=== PATIENT | female | born 1950 | race Caucasian/White ===

== ENCOUNTER 2016-05-17 16:39 | Emergency (ER) | payer MEDICARE, MEDICAID ==
[2016-05-17] MEDS ORDERED: guaiFENesin/CODEINE 5 ML UDC PO STA ×2 (18:04→18:46)
[2016-05-17] MEDS ORDERED: ALBUTEROL NEB 2.5 MG/3 ML INH STA (18:04)
[2016-05-17] MEDS ORDERED: guaiFENesin/CODEINE 5 ML UDC ONE ×2 (18:08→18:51)
[2016-05-17] MEDS ORDERED: ALBUTEROL NEB 2.5 MG/3 ML INH ONE (18:11)
[2016-05-17] MEDS ORDERED: ALBUTEROL 8 GM INHALER INH STA (18:34)
[2016-05-17] MEDS ORDERED: ALBUTEROL 8 GM INHALER INH ONE (18:35)
== END 2016-05-17 18:57 | disposition home or self-care (01) ==
DX: J06.9 Acute upper respiratory infection, unspecified (principal); B97.89 Other viral agents as the cause of diseases classified elsewhere
CPT/HCPCS: 71020; 94640; 94664; 99282; 99283; A9270; J7613

== ENCOUNTER 2016-06-18 15:41 | Outpatient (CLI) | payer MEDICARE, MEDICAID | END 2016-06-18 15:42 | disposition home or self-care (01) | DX: R05 Cough (principal) ==

== ENCOUNTER 2016-06-26 06:23 | Outpatient (CLI) | payer MEDICARE, MEDICAID ==
[2016-06-26] MEDS ORDERED: GADOBUTROL 7.5 MMOL/7.5 ML VIAL IVP ONE (09:02)
== END 2016-06-26 06:24 | disposition home or self-care (01) ==
DX: Z01.812 Encounter for preprocedural laboratory examination (principal); G50.0 Trigeminal neuralgia; R51 Headache
CPT/HCPCS: 36415; 70553; 82565; A9585

== ENCOUNTER 2016-10-19 08:00 | Outpatient (CLI) | payer MEDICARE, MEDICAID ==
[2016-10-19 12:03] LABS: ALBUMIN/GLOBULIN RATIO 1.5 (1.0-2.2); BILIRUBIN,TOTAL 0.4 mg/dL (0.2-1.0); BUN - BLOOD UREA NITROGEN 18 mg/dL (6-20); CARBON DIOXIDE - CO2 27 mmol/L (21-32); CHLORIDE 106 mmol/L (101-111); CHOLESTEROL 238 mg/dL; CREATININE 0.8 mg/dL (0.4-1.0); GFR - MDRD 71 (>89); GLUCOSE 93 mg/dL (70-100); HDL CHOLESTEROL 59 mg/dL; LDL/HDL RATIO 2.5 (<4.4); SODIUM 139 mmol/L (135-145); TOTAL PROTEIN 6.8 g/dL (6.7-8.2); TRIGLYCERIDES 152 mg/dL; VLDL CHOLESTEROL 30 mg/dL
== END 2016-10-19 23:59 ==
LOC: LAB.S 08:00
PROVIDERS: ATTEND Nurse Practitioner Family
DX: R43.9 Unspecified disturbances of smell and taste (principal); E78.5 Hyperlipidemia, unspecified; I10 Essential (primary) hypertension
CPT/HCPCS: 36415; 80053; 80061

== ENCOUNTER 2017-05-10 10:45 | Outpatient (CLI) | payer MEDICARE, MEDICAID | END 2017-05-10 10:46 | disposition home or self-care (01) | LOC: LAB.R 10:45 | PROVIDERS: ATTEND Nurse Practitioner Family | DX: B02.9 Zoster without complications (principal) | CPT/HCPCS: 81599; 87290 ==

== ENCOUNTER 2017-07-19 08:00 | Outpatient (CLI) | payer MEDICARE, MEDICAID ==
[2017-07-19 18:12] LABS: CREATININE 0.9 mg/dL (0.4-1.0)
== END 2017-07-19 08:01 | disposition home or self-care (01) ==
LOC: LAB.S 08:00
PROVIDERS: ATTEND Nurse Practitioner Family
DX: E87.1 Hypo-osmolality and hyponatremia (principal)
CPT/HCPCS: 36415; 80048

== ENCOUNTER 2017-07-19 14:45 | Outpatient (CLI) | payer MEDICARE, MEDICAID ==
--- NOTE | 2017-07-20 09:15 | XRAY Report ---
RIGHT HIP AND PELVIS: 07/19/2017 CLINICAL INDICATION: Pain. FINDINGS: Frontal view of the hips and pelvis and frogleg lateral view of the right hip demonstrate no evidence of fracture or dislocation. The joint spaces are preserved. No radiopaque foreign bodies are seen in the soft tissues. IMPRESSION: NORMAL RIGHT HIP. TD: 07/20/2017 09:14
== END 2017-07-19 14:46 | disposition home or self-care (01) ==
LOC: DI.S 14:45
PROVIDERS: ATTEND Nurse Practitioner Family
DX: M25.551 Pain in right hip (principal); E87.1 Hypo-osmolality and hyponatremia
CPT/HCPCS: 36415; 80048

== ENCOUNTER 2018-02-09 15:08 | Outpatient (CLI) | payer MEDICARE, MEDICAID ==
[2018-02-09 17:59] LABS: ALBUMIN 4.1 g/dL (3.2-5.5); ALBUMIN/GLOBULIN RATIO 1.5 (1.0-2.2); BILIRUBIN,TOTAL 0.5 mg/dL (0.2-1.0); CALCIUM 8.9 mg/dL (8.5-10.3); CREATININE 0.8 mg/dL (0.4-1.0); TOTAL PROTEIN 6.8 g/dL (6.7-8.2); URIC ACID 4.2 mg/dL (2.6-7.2)
== END 2018-02-09 15:09 | disposition home or self-care (01) ==
LOC: LAB.F 15:08
PROVIDERS: ATTEND Nurse Practitioner Family
DX: M79.672 Pain in left foot (principal)
CPT/HCPCS: 36415; 80053; 84550

== ENCOUNTER 2018-03-07 16:20 | Outpatient (CLI) | payer MEDICARE, MEDICAID | END 2018-03-07 16:21 | disposition home or self-care (01) | LOC: RT.S 16:20 | PROVIDERS: ATTEND Nurse Practitioner Family | DX: R07.9 Chest pain, unspecified (principal) | CPT/HCPCS: 93005 ==

== ENCOUNTER 2018-03-08 11:04 | Outpatient (CLI) | payer MEDICARE, MEDICAID ==
--- NOTE | 2018-03-09 12:15 | XRAY Report ---
Reason: FOOT JOINT PAIN,LEFT Procedure Date: 03/08/2018 Accession Number: [id number] / [id number] Procedure: XR - Foot 3 View LT CPT Code: FULL RESULT: EXAM: LEFT FOOT RADIOGRAPHY EXAM DATE: 03/08/2018 11:34 AM. CLINICAL HISTORY: FOOT JOINT PAIN,LEFT. COMPARISON: None. TECHNIQUE: 3 views. FINDINGS: Bones: Normal. No fractures or bone lesions. Joints: Normal. No subluxations. Soft Tissues: Normal. No soft tissue swelling. IMPRESSION: Normal foot radiography. RADIA
== END 2018-03-08 11:05 | disposition home or self-care (01) ==
LOC: DI 11:04
PROVIDERS: ATTEND Nurse Practitioner Family
DX: M79.672 Pain in left foot (principal)

== ENCOUNTER 2018-04-14 13:17 | Outpatient (CLI) | payer MEDICARE, MEDICAID ==
--- NOTE | 2018-04-14 16:23 | CARDIAC PROCEDURE NOTE ---
DATE OF SERVICE: 04/14/2018 Physician: Flor Reid MD, [facility] INDICATIONS: Chest pain. CARDIAC RISK FACTORS 1. Postmenopausal status. 2. Hypertension. 3. Family history of early heart disease. 4. Hyperlipidemia. SUMMARY: After signing informed consent, the patient performed an exercise stress test using a Deep protocol. There was no imaging ordered. Resting heart rate: 87, Peak heart rate: 128 (84% predicted maximum heart rate for age). Resting blood pressure: 152/80, Peak blood pressure: 160/70. The patient exercised for 1 minute and 35 seconds on a Deep protocol. She achieved a heart rate of 128 (84% PMHR) and 3.7 METS. She developed shortness of breath quickly and her typical chest pressure at peak, which she rated a 4/10. This symptom subsided after 3 minutes of recovery. Oxygen saturation at peak was 98% on room air. BASELINE EKG: Normal sinus rhythm, left atrial enlargement. EKG AT PEAK: Flat T-wave in leads I and aVL, [address] depressions in V5 through V6. IMPRESSION 1. Poor exercise tolerance. 2. Typical angina and shortness of breath at low level of activity. 3. Ischemic changes by EKG criteria on this Deep protocol stress test. 4. No imaging study ordered with this test. RECOMMENDATIONS: Begin antianginal management and consider coronary angiography. cc: CELE Sampson TD: 04/14/2018 15:38 MTDD
--- NOTE | 2018-04-15 13:23 | CARDIAC PROCEDURE NOTE ---
DATE OF SERVICE: 04/14/2018 Physician: Flor Reid MD ADDENDUM: I spoke to Natalia Martinez NP, her new provider with results of this abnormal stress test o n 04/15/2018 at approximately 11:30 a.m. TD: 04/15/2018 12:58
== END 2018-04-14 13:18 | disposition home or self-care (01) ==
LOC: DI 13:17
PROVIDERS: ATTEND Nurse Practitioner Family
DX: I20.9 Angina pectoris, unspecified (principal); R06.02 Shortness of breath; I10 Essential (primary) hypertension; E78.5 Hyperlipidemia, unspecified

== ENCOUNTER 2018-10-20 13:26 | Outpatient (CLI) | payer MEDICARE, MEDICAID ==
--- NOTE | 2018-10-21 10:33 | DEXA Report ---
Reason: ASYMPTOMATIC MENOPAUSAL STATE Procedure Date: 10/20/2018 Accession Number: [id number] / [id number] Procedure: DEX - Dexa Spine and/or Hip CPT Code: FULL RESULT: EXAM: Dexa Spine and/or Hip DATE: 10/20/2018 2:32 PM CLINICAL HISTORY: ASYMPTOMATIC MENOPAUSAL STATE TECHNIQUE: Dual energy x-ray absorptiometry (DXA) was performed on a [employer] System. Regions measured are the AP Spine, femoral neck, and if needed forearm. COMPARISON: None. In accordance with the International Society for Clinical Densitometry (ISCD) guidelines, data from previous exams may be reanalyzed using current recommendations and techniques. This is done to allow a more accurate basis for comparison with the current study. FINDINGS: The data for the lumbar spine is as follows: BMD (g/cm/cm) T-SCORE Z-SCORE REGION L1 0.970 -1.3 0.2 L2 1.194 0.0 1.5 L3 1.233 0.3 1.8 L4 1.111 -0.7 0.8 TOTAL 1.132 -0.4 1.1 NOTE: All evaluable vertebrae are used for classification The data for the hip is as follows: BMD (g/cm/cm) T-SCORE Z-SCORE REGION Neck 0.814 -1.6 0.0 TOTAL 0.874 -1.1 0.3 NOTE: The femoral neck or total proximal femur, whichever is lowest, is used for classification. IMPRESSION: THE WHO CLASSIFICATION BASED ON THE INTERNATIONAL REFERENCE STANDARD IS OSTEOPENIA. THE FRACTURE RISK IS INCREASED. RECOMMENDATION: Patients with diagnosis of osteoporosis or osteopenia should have regular bone mineral density assessment. For those eligible for Medicare, routine testing is allowed once every 2 years. Testing frequency can be increased for patients who have rapidly progressing disease or for those who are receiving medical therapy to restore bone mass. COMMENT: World Health Organization (WHO) definitions for osteoporosis and osteopenia: NORMAL BMD: T-score at -1.0 or higher, fracture risk is low OSTEOPENIA BMD: T-score between -1.0 and -2.5, fracture risk is increased. OSTEOPOROSIS BMD: T-score at -2.5 or lower, fracture risk is high. National Osteoporosis Foundation recommends: 1. Obtain adequate dietary calcium (at least 1200 mg per day) and vitamin D (400-800 international units per day). 2. Participate, as appropriate, in regular weightbearing and muscle-strengthening exercise. 3. Avoid tobacco use and reduce alcohol and caffeine intake. 4. For more detailed information see the website at www.NOF.org.
== END 2018-10-20 13:27 | disposition home or self-care (01) ==
LOC: DI 13:26
PROVIDERS: ATTEND Family Medicine
DX: M85.89 Other specified disorders of bone density and structure, multiple sites (principal); Z78.0 Asymptomatic menopausal state
CPT/HCPCS: 77080

== ENCOUNTER 2018-10-20 13:27 | Outpatient (CLI) | payer MEDICARE, MEDICAID ==
--- NOTE | 2018-10-20 14:39 | Mammography Report ---
Reason: SCREENING MAMMO Procedure Date: 10/20/2018 Accession Number: [id number] / [id number] Procedure: ESEQUIEL - Screening Mammo w/Jose David CPT Code: FULL RESULT: EXAM: Screening Mammo w/Jose David DATE: 10/20/2018 2:13 PM CLINICAL HISTORY: Screening encounter. No reported risk factors. TECHNIQUE: (B) - Bilateral CC and MLO views were obtained. Right laterally exaggerated CC views obtained. COMPARISON: 10/04/2013. PARENCHYMAL PATTERN: (A) - The breast(s) demonstrate(s) scattered fibroglandular densities. FINDINGS: A well-circumscribed 0.7 cm nodule in the right lower breast at the 6:00 position approximately 5 cm from the nipple has increased in size compared to 2013. This potentially represents a small cyst but should be further characterized by focused right breast ultrasound. See right MLO 3-D image 26 and right CC 3-D image 17. There are no suspicious masses, calcifications, or areas of distortion in the left breast. IMPRESSION: Incomplete examination. BI-RADS category 0. RECOMMENDATION: (ADDUS) - Targeted ultrasound recommended. Right breast. BI-RADS CATEGORY: (0) - Incomplete Examination - need additional evaluation. STANDARD QUALIFYING STATEMENTS: 1. This examination was not reviewed with the aid of Computer-Aided Detection (CAD). 2. A negative or benign imaging report should not preclude biopsy if clinically suspicious findings are present. 3. Dense breasts may obscure an underlying neoplasm. 4. This examination was reviewed with the aid of 3D breast imaging (tomosynthesis).
== END 2018-10-20 13:28 | disposition home or self-care (01) ==
LOC: DI 13:27
PROVIDERS: ATTEND Family Medicine
DX: Z12.31 Encounter for screening mammogram for malignant neoplasm of breast (principal)
CPT/HCPCS: 77063; 77067

== ENCOUNTER 2018-10-27 11:36 | Outpatient (CLI) | payer MEDICARE, MEDICAID ==
--- NOTE | 2018-10-27 14:00 | Ultrasound Report ---
Reason: ABNORMAL MAMMOGRAM Procedure Date: 10/27/2018 Accession Number: [id number] / [id number] Procedure: US - Breast Unilateral Limited CPT Code: FULL RESULT: EXAM: Breast Unilateral Limited DATE: 10/27/2018 12:20 PM CLINICAL HISTORY: ABNORMAL MAMMOGRAM COMPARISON: 10/20/2018 and 10/04/2013. TECHNIQUE: Targeted ultrasound was performed of the right breast in the area of clinical concern at 5:30 o'clock and 5 cm distance from the nipple. Color Doppler was employed as appropriate. FINDINGS: A simple cyst measuring 0.7 x 0.7 x 0.4 cm wider than tall is identified and corresponds in location and appearance to the mammographic finding, typically benign. No suspicious mass or architectural distortion is seen. IMPRESSION: Benign findings RECOMMENDATION: Recommend routine annual Screening mammography unless otherwise clinically indicated. BIRADS CATEGORY 2: Benign findings RADIA
== END 2018-10-27 11:37 | disposition home or self-care (01) ==
LOC: DI 11:36
PROVIDERS: ATTEND Family Medicine
DX: R92.2 Inconclusive mammogram (principal); N60.01 Solitary cyst of right breast
CPT/HCPCS: 76642

== ENCOUNTER 2019-11-13 13:36 | Outpatient (CLI) | payer MEDICARE, MEDICAID ==
[2019-11-13] MEDS ORDERED: GADOBUTROL 7.5 MMOL/7.5 ML VIAL ONE (14:17)
[2019-11-13] MEDS ORDERED: GADOBUTROL 7.5 MMOL/7.5 ML VIAL IVP ONE (14:59)
--- NOTE | 2019-11-13 17:11 | MRI Report ---
PROCEDURE: Brain W/WO INDICATIONS: TRIGEMINAL NEURALGIA CONTRAST: IV CONTRAST: Gadavist ml: 6.5 TECHNIQUE: Noncontrast axial T1 spin echo, axial T2 fast spin echo, sagittal and axial FLAIR, coronal T2 fast sp in echo, axial gradient echo, axial diffusion and ADC through the brain. After the administration of contrast, axial and coronal T1 spin echo with fat saturation through the brain. COMPARISON: Prior brain MRI 06/26/2016. FINDINGS: Image quality: Excellent. CSF spaces: Basal cisterns are patent. No extra-axial fluid collections. Ventricles are normal in size and shape. Brain: In this patient with this given history, scrutiny is given to the trigeminal nerves. The trig eminal nerves demonstrate a normal, symmetric appearance. No masses or abnormal enhancement or abnorm al signal can be seen along the courses of the trigeminal nerves, including within the Meckel's caves . No midline shift. No intracranial bleeds or masses. No abnormal intracranial enhancement. There is cerebral volume loss for age. There is periventricular white matter chronic small vessel ischemic c hange. The brainstem appears normal. Diffusion-weighted images demonstrate no acute ischemic insult s. No chronic ischemic insults. Normal intravascular flow voids are present. Skull and face: Calvarial marrow is normal in signal. Orbits appear normal. Sinuses: Sinuses and mastoids appear clear. IMPRESSION: A cause of the patient's presenting history of trigeminal neuralgia cannot be seen on these images. No masses or abnormal enhancement can be seen. Age-appropriate brain parenchymal volume loss and chronic small vessel ischemic change can be seen. Reviewed by: Long Moreno MD on 11/13/2019 4:09 PM ELVIRA Approved by: Long Moreno MD on 11/13/2019 4:09 PM ELVIRA Station ID: [id number]
== END 2019-11-13 13:37 | disposition home or self-care (01) ==
LOC: DI 13:36
PROVIDERS: ATTEND Nurse Practitioner Family
DX: G50.0 Trigeminal neuralgia (principal)
CPT/HCPCS: 70553; A9585

== ENCOUNTER 2019-11-27 09:47 | Outpatient (CLI) | payer MEDICARE, MEDICAID ==
--- NOTE | 2019-11-27 11:28 | XRAY Report ---
PROCEDURE: Hip w/Pelvis 2-3V RT INDICATIONS: ACUTE ON CHRONIC RT HIP PAIN TECHNIQUE: AP pelvis with lateral view(s) of the bilateral hip(s). COMPARISON: None. FINDINGS: Bones: No fractures or dislocations. Pelvic ring appears intact. No suspicious bony lesions. Mild osseous hypertrophy noted in the hips bilaterally compatible with osteoarthritis. Soft tissues: The visualized bowel gas pattern is normal. No suspicious soft tissue calcifications. IMPRESSION: Mild osteoarthritis. Reviewed by: Anita Barrios MD, PhD on 11/27/2019 11:27 AM PDT Approved by: Anita Barrios MD, PhD on 11/27/2019 11:27 AM PDT Station ID: [id number]
== END 2019-11-27 09:48 | disposition home or self-care (01) ==
LOC: DI.S 09:47
PROVIDERS: ATTEND Family Medicine
DX: M16.11 Unilateral primary osteoarthritis, right hip (principal)

== ENCOUNTER 2021-02-17 07:51 | Emergency (ER) | payer MEDICARE, MEDICAID ==
--- NOTE | 2021-02-17 08:10 | ED Physician Documentation ---
PD HPI CHEST PAIN - Stated complaint Stated Complaint: CHEST DISCOMFORT - Chief complaint Chief Complaint: Cardiac - History obtained from History obtained from: Patient - History of Present Illness Timing - onset: How many days ago (4) Timing - onset during: Rest Timing - duration: Days (4) Timing - details: Gradual onset, Still present, Waxing and waning Quality: Pressure, Aching Location: Right chest Radiation: Back, Abdominal Improved by: Rest Worsened by: Inspiration, Movement, Palpation, Position Associated symptoms: Nausea. No: Shortness of air, Diaphoresis, Vomiting, Feeling faint / dizzy, General Weakness, Palpitations, Cough Similar symptoms before: Has not had sx before Recently seen: Not recently seen - Additional information Additional information: Appears well 70-year-old female has developed some pain in the right upper quadrant and in her right lower chest. It is worse when she takes a deep breath it is intermittent and undulating in nature. She states that it hurts worse after she eats and she is feeling a little bit nauseated. Review of Systems Constitutional: denies: Fever Eyes: denies: Decreased vision Ears: denies: Ear pain Nose: denies: Congestion Throat: denies: Sore throat Cardiac: reports: Chest pain / pressure. denies: Palpitations, Pedal edema, Calf pain Respiratory: denies: Dyspnea, Cough, Wheezing GI: reports: Abdominal Pain, Nausea, Constipation. denies: Vomiting, Diarrhea : denies: Dysuria, Frequency PD PAST MEDICAL HISTORY - Past Surgical History Past Surgical History: No - Present Medications Home Medications: Ambulatory Orders Medication Instructions Recorded Confirmed carBAMazepine [Epitol] 200 mg PO DAILY 05/17/16 02/17/21 Alprazolam [Xanax] 0.25 mg PO Q6HR PRN 02/17/21 02/17/21 Losartan [Cozaar] 50 mg PO DAILY 02/17/21 02/17/21 hydrOXYzine HCL [Hydroxyzine HCl] 25 mg ORAL HS PRN 02/17/21 02/17/21 - Allergies Allergies/Adverse Reactions: Allergies Allergy/AdvReac Type Severity Reaction Status Date / Time No Known Drug Allergies Allergy Verified 02/17/21 07:54 - Social History Does the pt smoke?: No Smoking Status: Never smoker Does the pt drink ETOH?: No Does the pt have substance abuse?: No PD ED PE NORMAL - Vitals Vital signs reviewed: Yes (Hypertensive) - General General: Alert and oriented X 3, No acute distress, Well developed/nourished - HEENT HEENT: Atraumatic, PERRL, EOMI - Neck Neck: Supple, no meningeal sign, No bony TTP - Cardiac Cardiac: RRR, No murmur - Respiratory Respiratory: No respiratory distress, Clear bilaterally - Abdomen Abdomen: Normal bowel sounds, Soft, Non distended, No organomegaly, Other (mild RUQ pain to deep palpation ) - Back Back: No CVA TTP, No spinal TTP - Derm Derm: Normal color, Warm and dry, No rash - Extremities Extremities: No deformity, No edema - Neuro Neuro: Alert and oriented X 3, air pollution analyst 2-12 intact, No motor deficit, No sensory deficit, Normal speech Eye Opening: Spontaneous Motor: Obeys Commands Verbal: Oriented GCS Score: 15 - Psych Psych: Normal mood, Normal affect Results - Vitals Vitals: Vital Signs - 24 hr 02/17/21 02/17/21 02/17/21 07:54 08:30 11:06 Temperature 37 C Heart Rate 80 73 71 Respiratory 18 12 Rate Blood Pressure 201/90 H 188/89 H 192/99 H O2 Saturation 98 99 02/17/21 11:50 Temperature 36.5 C Heart Rate 68 Respiratory 16 Rate Blood Pressure 178/72 H O2 Saturation 96 Oxygen O2 Source Room air - EKG (time done) 0754 Rate: Rate (enter#) (76) [place]: LAD Ischemia: Normal ST segments Compare to prior EKG: Changed from prior EKG (SPT 03-07-18 the wide spread T-wave inversions have resolved. No ischemia) Computer interpretation: Agree with computer - Labs Labs: Laboratory Tests 02/17/21 02/17/21 02/17/21 08:22 08:22 08:22 WBC 9.1 RBC 4.96 Hgb 15.2 Hct 44.3 MCV 89.3 MCH 30.6 MCHC 34.3 RDW 12.6 Plt Count 313 MPV 8.7 Neut # (Auto) 6.5 Lymph # (Auto) 1.9 Becker # (Auto) 0.5 Eos # (Auto) 0.1 Baso # (Auto) 0.1 Absolute Nucleated RBC 0.00 Nucleated RBC % 0.0 Sodium 138 Potassium 3.7 Chloride 98 L Carbon Dioxide 30 Anion Gap 10.0 BUN 17 Creatinine 0.8 Estimated GFR (MDRD) 71 L Glucose 106 H Calcium 9.2 Total Bilirubin 0.7 AST 20 ALT 17 Alkaline Phosphatase 87 Troponin I High Sens 7.4 Total Protein 7.1 Albumin 4.3 Globulin 2.8 Albumin/Globulin Ratio 1.5 Lipase 69 H - Rads (name of study) chest Radiology: Prelim report reviewed (Impression: No acute cardiopulmonary pathology.), EMP read indepedently, See rad report CT abd Radiology: Prelim report reviewed (Impression: 1. Normal-appearing gallbladder. No biliary ductal dilation. Normal-appearing liver, pancreas and spleen. No renal stones or hydronephrosis. No bowel obstruction or abdominal wall bowel wall thickening. No free fluid or free air. Mild constipation. Normal appendix.), EMP read indepedently, See rad report us abd Radiology: Prelim report reviewed (Impression: 1. No acute right upper quadrant sonographic abnormality.), EMP read indepedently, See rad report PD MEDICAL DECISION MAKING - ED course Complexity details: reviewed results, re-evaluated patient, considered differential, d/w patient ED course: 70-year-old female with right upper quadrant abdominal pain has undulating pain in nature she has some intermittent tenderness to the right upper quadrant she has a negative ultrasound of the gallbladder and we did not end up doing a CT scan of the abdomen pelvis which demonstrated stool throughout every cut. I have gone back in and discussed this with the patient and it does appear that constipation is likely the etiology of this lady's pain. I have encouraged her to take some milk of magnesia today and to use MiraLAX on a regular basis. Departure - Departure Disposition: 01 Home, Self Care Clinical Impression: Constipation Qualifiers: Constipation type: unspecified constipation type Qualified Code(s): K59.00 - Constipation, unspecified Condition: Stable Instructions: ED Constipation Follow-Up: Cristo Mcfadden MD [Primary Care Provider] - Comments: After a bout of constipation like this it is important to retrain your colon. The recommendation is to use MiraLAX on a regular basis for at least 2 weeks. Discharge Date/Time: 02/17/21 11:55
[2021-02-17 08:29] LABS: BASOPHILS # (AUTO) 0.1 10^3/uL (0.0-0.1); BASOPHILS % (AUTO) 0.7 %; EOSINOPHILS # (AUTO) 0.1 10^3/uL (0.0-0.7); EOSINOPHILS % (AUTO) 0.7 %; HCT - HEMATOCRIT 44.3 % (37.0-47.0); HGB - HEMOGLOBIN 15.2 g/dL (12.0-16.0); LYMPHOCYTES # (AUTO) 1.9 10^3/uL (1.5-3.5); LYMPHOCYTES % (AUTO) 21.2 %; MEAN CORPUSCULAR HEMOGLOBIN 30.6 pg (27.0-31.0); MEAN CORPUSCULAR HGB CONC 34.3 g/dL (32.0-36.0); MEAN CORPUSCULAR VOLUME 89.3 fL (81.0-99.0); MEAN PLATELET VOLUME 8.7 fL (7.9-10.8); MONOCYTES # (AUTO) 0.5 10^3/uL (0.0-1.0); MONOCYTES % (AUTO) 5.6 %; NEUTROPHILS # (AUTO) 6.5 10^3/uL (1.5-6.6); NEUTROPHILS % (AUTO) 71.4 %; PLT - PLATELET COUNT 313 10^3/uL (130-450); RED BLOOD COUNT 4.96 10^6/uL (4.20-5.40); RED CELL DISTRIBUTION WIDTH 12.6 % (12.0-15.0); WHITE BLOOD COUNT 9.1 x10^3/uL (4.8-10.8)
[2021-02-17 08:40] LABS: ALBUMIN 4.3 g/dL (3.2-5.5); ALBUMIN/GLOBULIN RATIO 1.5 (1.0-2.2); BILIRUBIN,TOTAL 0.7 mg/dL (0.2-1.0); CALCIUM 9.2 mg/dL (8.5-10.3); CREATININE 0.8 mg/dL (0.4-1.0); POTASSIUM 3.7 mmol/L (3.5-5.0); TOTAL PROTEIN 7.1 g/dL (6.7-8.2)
--- NOTE | 2021-02-17 08:44 | XRAY Report ---
PROCEDURE: Chest 1 View X-Ray INDICATIONS: Chest Pain TECHNIQUE: One view of the chest was acquired. COMPARISON: 06/18/2016 FINDINGS: Surgical changes and devices: None. Lungs and pleura: No pleural effusions or pneumothorax. Lungs are clear. Mediastinum: Mediastinal contours appear normal. Heart size is normal. Bones and chest wall: No suspicious bony lesions. Overlying soft tissues appear unremarkable. IMPRESSION: No acute cardiopulmonary pathology. Reviewed by: Alex Dyer MD on 02/17/2021 8:43 AM PDT Approved by: Alex Dyer MD on 02/17/2021 8:43 AM PDT Station ID: [id number]
[2021-02-17] MEDS ORDERED: KETOROLAC 30 MG/ML VIAL IVP STA (08:49)
--- NOTE | 2021-02-17 10:10 | Ultrasound Report ---
PROCEDURE: Abdomen Limited INDICATIONS: RUQ pain TECHNIQUE: Real-time focused scanning was performed of the abdomen, with image documentation. COMPARISON: None available. TECHNIQUE: Sonographic evaluation of the abdomen was performed. Evaluation was targeted in the right upper quadrant. FINDINGS: AORTA: The visualized abdominal aorta is normal. IVC: The visualized IVC is normal. LIVER: The liver measures approximately 14.3 cm in length. Increased echogenicity, compatible with hepatic steatosis. The portal vein is patent. PANCREAS: The visualized portions of the pancreas are normal. Gallbladder and biliary tree: No gallbladder wall thickening or pericholecystic fluid. No shadowing gallstones. RIGHT KIDNEY: Normal in appearance with no hydronephrosis. Measuring 9.3 cm in length. The renal co rtex thickness measures 1.25 cm. No ascites. IMPRESSION: 1.No acute right upper quadrant sonographic abnormality. Reviewed by: Westley Anthony MD on 02/17/2021 10:09 AM PDT Approved by: Westley Anthony MD on 02/17/2021 10:09 AM PDT Station ID: [id number]
--- NOTE | 2021-02-17 10:48 | CT Report ---
PROCEDURE: Abdomen/Pelvis WO INDICATIONS: RUQ pain TECHNIQUE: Noncontrast 5 mm thick sections acquired from the diaphragms to the symphysis. 5 mm coronal and sagi ttal reformats were then performed. For radiation dose reduction, the following was used: automated exposure control, adjustment of mA and/or kV according to patient size. COMPARISON: Ultrasound of abdomen dated 02/17/2021. FINDINGS: Image quality: Excellent. ABDOMEN: Lung bases: Lung bases are clear. 4 mm calcified granuloma in lateral aspect of left lung base is s een series 4 image 22. Heart size is normal. Solid organs: Liver and spleen are normal in size. Gallbladder is within normal limits Pancreas is normal in contours. No adrenal nodules. Kidneys are normal in size, without hydronephrosis or neph rolithiasis. Peritoneum and bowel: Unenhanced bowel loops demonstrate normal wall thickness and caliber. No free fluid or air. Appendix is visualized and is within normal limits. Mild fecal stasis in the colon is seen. Nodes and vessels: No retroperitoneal or mesenteric adenopathy by size criteria. Aorta and inferior vena cava are normal in caliber. Moderate atherosclerotic calcifications in abdominal aorta is seen . Miscellaneous: No ventral hernias. PELVIS: Genitourinary: Bladder wall thickness is normal. Uterus and bilateral adnexa show no gross abnormal ity. Miscellaneous: No inguinal hernias or adenopathy. Bones: No suspicious bony lesions. No vertebral body compression fractures. Degenerative disc dise ase throughout lumbar spine is seen. Osteoarthritic changes in bilateral hip joints are noted. IMPRESSION: 1. Normal-appearing gallbladder. No biliary ductal dilatation. Normal-appearing liver, pancreas and s pleen. 2. No renal stone or hydronephrosis. 3. No bowel obstruction or abnormal bowel wall thickening. No free fluid of free air. Mild constipati on. Normal appendix. Reviewed by: Alex Dyer MD on 02/17/2021 10:47 AM PDT Approved by: Alex Dyer MD on 02/17/2021 10:47 AM PDT Station ID: [id number]
[2021-02-17] MEDS ORDERED: ONDANSETRON 4 MG/2 ML VIAL IVP STA (11:11)
[2021-02-17] MEDS ORDERED: MAG HYDROX/AL HYDROX/SIMETH 30 ML UDC PO STA (11:11)
[2021-02-17 11:50] VITALS: BP 178/72
== END 2021-02-17 11:55 | disposition home or self-care (01) ==
LOC: ED 07:51
DX: K59.00 Constipation, unspecified (principal); R07.9 Chest pain, unspecified
CPT/HCPCS: 36415; 71045; 74176; 76705; 80053; 83690; 84484; 85025; 93005; 96374; 99284; A9270

== ENCOUNTER 2023-01-06 14:05 | Emergency (ER) | payer MEDICARE, MEDICAID ==
[2023-01-06 14:24] VITALS: BP 153/66; O2SAT 100
[2023-01-06] MEDS ORDERED: ASPIRIN CHEW 81 MG TABLET PO STA (15:12)
--- NOTE | 2023-01-06 15:12 | ED Physician Documentation ---
PD HPI CHEST PAIN - Stated complaint Stated Complaint: CP/NECK PX - Chief complaint Chief Complaint: Cardiac - History obtained from History obtained from: Patient - Additional information Additional information: She has a known history of coronary disease with [address], most recently 3 years ago. Also has hyperlipidemia. She presents today for mainly chest pain but she knows she had been fatigued for many months. No specific diagnosis. Over the last 3 days she has had increased indigestion with intermittent nonexertional shocklike pains of the anterior chest. These happen maybe every 20 minutes or so but has not had any in quite some time now. She has had jaw pain but its been swelling on and off and so she thinks that is more likely related to a tooth issue. She is pain-free now. 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 : None HEENT: Chronic vision loss Psych: Depression, Anxiety Musculoskeletal: Chronic back pain Derm: None - Past Surgical History Past Surgical History: No Cardiovascular: Coronary stent - Present Medications Home Medications: Ambulatory Orders Medication Instructions Recorded Confirmed carBAMazepine [Epitol] 200 mg PO DAILY 05/17/16 02/17/21 Alprazolam [Xanax] 0.25 mg PO Q6HR PRN 02/17/21 02/17/21 Losartan [Cozaar] 50 mg PO DAILY 02/17/21 02/17/21 hydrOXYzine HCL [Hydroxyzine HCl] 25 mg ORAL HS PRN 02/17/21 02/17/21 - Allergies Allergies/Adverse Reactions: Allergies Allergy/AdvReac Type Severity Reaction Status Date / Time No Known Drug Allergies Allergy Verified 01/06/23 14:21 - Social History Does the pt smoke?: No Smoking Status: Never smoker Does the pt drink ETOH?: No Does the pt have substance abuse?: No - Immunizations Immunizations are current?: No Immunizations: TDAP >10years/unknown PD ED PE NORMAL - Vitals Vital signs reviewed: Yes - General General: Alert and oriented X 3, No acute distress - HEENT HEENT: Pharynx benign - Neck Neck: Supple, no meningeal sign, No bony TTP - Cardiac Cardiac: RRR, No murmur - Respiratory Respiratory: No respiratory distress, Clear bilaterally - Abdomen Abdomen: Non tender - Derm Derm: Normal color, Warm and dry - Extremities Extremities: No edema, No calf tenderness / cord - Neuro Neuro: Alert and oriented X 3, Normal speech Results - Vitals Vitals: Vital Signs - 24 hr 01/06/23 14:13 Temperature 36.8 C Heart Rate 76 Respiratory 19 Rate Blood Pressure 153/66 H O2 Saturation 100 Oxygen O2 Source Room air - EKG (time done) 1423 EKG releavant findings:: EKG personally interpreted by author of this note. Relevant findings are: Rate: Rate (enter#) (68) Rhythm: NSR, LAE Mcandrews: Normal Intervals: Normal [place] QRS: Normal Ischemia: Normal ST segments - Labs Labs: Laboratory Tests 01/06/23 01/06/23 15:21 15:21 WBC 7.6 RBC 4.30 Hgb 13.4 Hct 39.1 MCV 90.9 MCH 31.2 H MCHC 34.3 RDW 11.9 L Plt Count 323 MPV 8.7 Neut # (Auto) 5.4 Lymph # (Auto) 1.6 [place] # (Auto) 0.5 Eos # (Auto) 0.1 Baso # (Auto) 0.1 Absolute Nucleated RBC 0.00 Nucleated RBC % 0.0 Sodium 135 Potassium 3.8 Chloride 99 L Carbon Dioxide 32 Anion Gap 4.0 L BUN 17 Creatinine 0.8 Estimated GFR (MDRD) 70 L Glucose 112 H Calcium 9.9 Total Bilirubin 0.2 AST 16 ALT 11 Alkaline Phosphatase 78 Troponin I High Sens 2.8 Total Protein 6.7 Albumin 4.2 Globulin 2.5 Albumin/Globulin Ratio 1.7 Lipase 24 TSH 0.52 PD Medical Decision Making - ED course ED course: 72-year-old woman with chronic fatigue of unclear etiology more acutely has had indigestion and atypical chest pains in the setting of known coronary disease. EKG is nonischemic. Nothing in the history or physical to suggest PE or dissection. 72-year-old woman with Atypical shocklike chest pain in the setting of negative biomarkers but known coronary disease. Advise close cardiology follow-up and return precautions. She had been pain-free while in the department. Departure - Departure Disposition: 01 Home, Self Care Clinical Impression: Chest pain Condition: Good Record reviewed to determine appropriate education?: Yes Instructions: ED Chest Pain Atypical Unkn Cause Comments: Your EKG, troponin, and other basic lab testing was normal/unremarkable today. Please return if the pain worsens or starts lasting any longer or the pattern changes at all. Otherwise call your tail trimmer tomorrow for close follow-up with anticipation of potential stress testing. Also talk with your primary care physician about the chronic fatigue and work-up for that. Forms: PCP List Discharge Date/Time: 01/06/23 16:47
--- OUTSIDE RECORDS SUMMARY | 2023-01-06 15:19 | EXTERNAL MEDICAL SUMMARY RPT | Continuity of Care Document ---
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 [place] 2022-11-05 00:00 Herpesvirus infection [facility] [place] 2022-11-05 00:00 H/O: cardiovascular disease [facility] 2022-11-05 00:00 Other and unspecified hyperlipi demia [facility] 2022-11-05 00:00 Other and unspecified hyperlipi demia [facility] 2022-11-05 00:00 Anxiety state, unspecified [facility] 2022-11-05 00:00 Anxiety state, unspecified [facility] 2022-11-05 00:00 Depressive disorder, not elsewhere classified [facility] 2022-11-05 00:00 Depressive disorder, not elsewhere classified [facility] 2022-11-05 00:00 Facial nerve disorder, unspecif ied [facility] 2022-11-05 00:00 Facial nerve disorder, unspecif ied [facility] 2022-11-05 00:00 Depressive disorder [facility] 2022-11-05 00:00 Depressive disorder [facility] 2022-11-05 00:00 Facial nerve disorder [facility] 2022-11-05 00:00 Facial nerve disorder [facility] 2022-11-05 00:00 Viral syndrome [facility] 2022-11-05 00:00 Anxiety [facility] 2022-11-05 00:00 Anxiety [facility] 2022-11-05 00:00 Hyperlipidemia [facility] 2022-11-05 00:00 Hyperlipidemia [facility] 2022-11-05 00:00 Urinary incontinence, unspecifi ed [facility] 2022-11-05 00:00 Urinary incontinence, unspecifi ed [facility] 2022-11-05 00:00 Herpesviral infection, unspecif ied [facility] 2022-11-05 00:00 Herpesviral infection, unspecif ied [facility] 2022-11-05 00:00 Other viral agents a s the cause of diseases classified elsewhere [facility] 2022-11-05 00:00 Hyperlipidemia, unspecified [facility] 2022-11-05 00:00 Hyperlipidemia, unspecified [facility] 2022-11-05 00:00 Major depressive dis order, single episode, unspecified [facility] 2022-11-05 00:00 Major depressive dis order, single episode, unspecified [facility] [place] 2022-11-05 00:00 Anxiety disorder, unspecified [facility] [place] 2022-11-05 00:00 Anxiety disorder, unspecified [facility] [place] 2022-11-05 00:00 Disorder of facial nerve, unspe cified [facility] [place] 2022-11-05 00:00 Disorder of facial nerve, unspe cified [facility] [place] 2022-11-05 00:00 Unspecified urinary incontinenc e [facility] [place] 2022-11-05 00:00 Unspecified urinary incontinenc e [facility] [place] 2022-11-05 00:00 Other personal histo ry of diseases of circulatory system [facility] 2022-11-05 00:00 Personal history of other diseases of the circulatory system [facility] [place] 2022-11-06 00:00 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 [facility] [place] 2022-11-06 00:00 Urinary incontinence [facility] [place] 2022-11-06 00:00 Herpesvirus infection [facility] [place] 2022-11-06 00:00 Other and unspecified hyperlipi demia [facility] [place] 2022-11-06 00:00 Anxiety state, unspecified [facility] [place] 2022-11-06 00:00 Depressive disorder, not elsewhere classified [facility] [place] 2022-11-06 00:00 Facial nerve disorder, unspecif ied [facility] [place] 2022-11-06 00:00 Depressive disorder [facility] [place] 2022-11-06 00:00 Facial nerve disorder [facility] [place] 2022-11-06 00:00 Anxiety [facility] [place] 2022-11-06 00:00 Hyperlipidemia [facility] [place] 2022-11-06 00:00 Urinary incontinence, unspecifi ed [facility] [place] 2022-11-06 00:00 Herpesviral infection, unspecif ied [facility] [place] 2022-11-06 00:00 Hyperlipidemia, unspecified [facility] [place] 2022-11-06 00:00 Major depressive dis order, single episode, unspecified [facility] [place] 2022-11-06 00:00 Anxiety disorder, unspecified [facility] [place] 2022-11-06 00:00 Disorder of facial nerve, unspe cified [facility] [place] 2022-11-06 00:00 Unspecified urinary incontinenc e [facility] [place] Procedures date description facility 2022-11-05 00:00 Visit Code Hold [facility] [place] 2022-11-05 00:00 EKG Office Complete [facility] [place] Social History date description facility 2022-11-05 00:00 Never smoker [facility] [place] Vital Signs date measurement value units 2022-11-05 00:00 BMI 23.48 kg/m2 2022-11-05 00:00 BP_diastolic 89 mmHg 2022-11-05 00:00 BP_systolic 173 mmHg 2022-11-05 00:00 heart_rate 67 /min 2022-11-05 00:00 height_metric 158.75 cm 2022-11-05 00:00 height_standard 62.5 in 2022-11-05 00:00 respiration_rate 16 /min 2022-11-05 00:00 temperature_metric 36.5 C 2022-11-05 00:00 temperature_standard 97.7 F 2022-11-05 00:00 weight_metric 58.97 kg 2022-11-05 00:00 weight_standard 130 lb
[2023-01-06 15:28] LABS: BASOPHILS # (AUTO) 0.1 10^3/uL (0.0-0.1); BASOPHILS % (AUTO) 0.7 %; EOSINOPHILS # (AUTO) 0.1 10^3/uL (0.0-0.7); EOSINOPHILS % (AUTO) 0.7 %; HCT - HEMATOCRIT 39.1 % (37.0-47.0); HGB - HEMOGLOBIN 13.4 g/dL (12.0-16.0); LYMPHOCYTES # (AUTO) 1.6 10^3/uL (1.5-3.5); LYMPHOCYTES % (AUTO) 20.9 %; MEAN CORPUSCULAR HEMOGLOBIN 31.2 pg (27.0-31.0); MEAN CORPUSCULAR HGB CONC 34.3 g/dL (32.0-36.0); MEAN CORPUSCULAR VOLUME 90.9 fL (81.0-99.0); MEAN PLATELET VOLUME 8.7 fL (7.9-10.8); MONOCYTES # (AUTO) 0.5 10^3/uL (0.0-1.0); MONOCYTES % (AUTO) 6.1 %; NEUTROPHILS # (AUTO) 5.4 10^3/uL (1.5-6.6); NEUTROPHILS % (AUTO) 71.3 %; PLT - PLATELET COUNT 323 10^3/uL (130-450); RED CELL DISTRIBUTION WIDTH 11.9 % (12.0-15.0); WHITE BLOOD COUNT 7.6 x10^3/uL (4.8-10.8)
--- NOTE | 2023-01-06 15:32 | XRAY Report ---
PROCEDURE: Chest 1 View X-Ray INDICATIONS: Chest Pain TECHNIQUE: One view of the chest was acquired. COMPARISON: 02/17/2021. FINDINGS: Surgical changes and devices: None. Lungs and pleura: No pleural effusions or pneumothorax. Lungs are clear. Mediastinum: Mediastinal contours appear normal. Heart size is normal. Bones and chest wall: No suspicious bony lesions. Overlying soft tissues appear unremarkable. IMPRESSION: No acute cardiopulmonary process. Reviewed by: Alex Rogers MD on 01/06/2023 3:31 PM PDT Approved by: Alex Rogers MD on 01/06/2023 3:31 PM PDT Station ID: [id number]
[2023-01-06 16:11] LABS: ALBUMIN 4.2 g/dL (3.2-5.5); ALBUMIN/GLOBULIN RATIO 1.7 (1.0-2.2); BILIRUBIN,TOTAL 0.2 mg/dL (0.2-1.0); CALCIUM 9.9 mg/dL (8.5-10.3); CREATININE 0.8 mg/dL (0.6-1.3); POTASSIUM 3.8 mmol/L (3.5-4.5); TOTAL PROTEIN 6.7 g/dL (6.4-8.9)
[2023-01-06 16:14] LABS: TROPONIN I HIGH SENSITIVITY 2.8 ng/L (2.3-14.8)
[2023-01-06 16:22] LABS: THYROID STIMULATING HORMONE 0.52 uIU/mL (0.34-5.60)
== END 2023-01-06 16:47 | disposition home or self-care (01) ==
LOC: ED 14:05
DX: R07.9 Chest pain, unspecified (principal); I10 Essential (primary) hypertension
CPT/HCPCS: 36415; 71045; 80053; 83690; 84443; 84484; 85025; 93005; 99283; 99284; A9270

== ENCOUNTER 2023-03-03 08:36 | Outpatient (CLI) | payer MEDICARE, MEDICAID | END 2023-03-03 08:37 | disposition home or self-care (01) | LOC: LAB.S 08:36 | PROVIDERS: ATTEND Physician Assistant | DX: Z11.1 Encounter for screening for respiratory tuberculosis (principal) | CPT/HCPCS: 81599; 86480; 87086 ==

== ENCOUNTER 2023-03-10 12:54 | Outpatient (CLI) | payer MEDICARE, MEDICAID ==
--- NOTE | 2023-03-10 14:30 | DEXA Report ---
PROCEDURE: Dexa Spine and/or Hip INDICATIONS: POST MENOPAUSAL TECHNIQUE: Dual energy x-ray absorptiometry (DXA) was performed on a [employer]. Regions measur ed are the AP Spine, femoral neck, and if needed forearm. COMPARISON: 10/20/2018 FINDINGS: Lumbar Spine: Bone Mineral Density 1.106 g/cm/cm,T score -0.6. There has been no statistically significant change in bone mineral density since the prior study. Left Femoral Neck: Bone Mineral Density 0.715 g/cm/cm, T score -2.3. Left Hip: Bone Mineral Density 0.811 g/cm/cm,T score -1.6. Since the most recent prior study, there has been a statistically significant decrease in bone mineral density by 7.2 percent. (T score greater or equal to 1.0: NORMAL) (T score from -1.1 to -2.4: OSTEOPENIA) (T score less than or equal to -2.5 to: OSTEOPOROSIS) Impression: By WHO criteria, this patient has low bone density (osteopenia). No statistical interval change in bone minteral density of the lumbar spine. Interval statistical dec rease in bone minteral density of the hip. Patients with diagnosis of osteoporosis or osteopenia should have regular bone mineral density assess ment. For those eligible for Medicare, routine testing is allowed once every 2 years. Testing frequ ency can be increased for patients who have rapidly progressing disease or for those who are receivin g medical therapy to restore bone mass. Reviewed by: Clifton Alcala MD on 03/10/2023 2:29 PM PST Approved by: Clifton Alcala MD on 03/10/2023 2:29 PM PST Station ID: [id number]
== END 2023-03-10 12:55 | disposition home or self-care (01) ==
LOC: DI 12:54
PROVIDERS: ATTEND Nurse Practitioner Family
DX: Z78.0 Asymptomatic menopausal state (principal); M85.80 Other specified disorders of bone density and structure, unspecified site

== ENCOUNTER 2023-03-10 12:54 | Outpatient (CLI) | payer MEDICARE, MEDICAID ==
--- NOTE | 2023-03-11 09:23 | Mammography Report ---
BILATERAL DIGITAL SCREENING MAMMOGRAM 3D/2D: 03/10/2023 CLINICAL: Routine screening. Comparison is made to exams dated: 10/20/2018 mammogram and 10/04/2013 mammogram - [facility]. There are scattered areas of fibroglandular density in both breasts (category b / 25%-50% glandular t issue). There is an oval asymmetry in the left breast central to the nipple anterior depth. This is more pro minent. No other significant masses, calcifications, or other findings are seen in either breast. IMPRESSION: INCOMPLETE: NEEDS ADDITIONAL IMAGING EVALUATION The oval asymmetry in the left breast is indeterminate. Additional views with possible ultrasound ar e recommended. Based on the Tyrer Cuzick model (a risk assessment model) the patients lifetime risk is 3.0% and her 10 year risk is 2.7%. According to the ACR, ACS, and NCCN guidelines, an annual breast MRI exam gianluca g with mammogram is recommended if the patients lifetime risk is 20% or greater. This exam was interpreted at Station ID: [id number]. NOTE: For mammograms, a report in lay terms will be sent to the patient. Approximately 15% of breast malignancies will not be visualized mammographically. In the management of a palpable breast mass, a negative mammogram must not discourage biopsy of a clinically suspicious lesion. Electronically Signed By: Luis Eduardo Lemons M.D. lc/:03/10/2023 15:50:55 ACR BI-RADS Category 0: Incomplete 3340F PARENCHYMAL PATTERN: (A) - The breast(s) demonstrate(s) scattered fibroglandular densities. BI-RADS CATEGORY: (0) - 0 Mammo and [place] [id number] Immediate follow-up LATERALITY: (B)
== END 2023-03-10 12:55 | disposition home or self-care (01) ==
LOC: DI 12:54
PROVIDERS: ATTEND Nurse Practitioner Family
DX: Z12.31 Encounter for screening mammogram for malignant neoplasm of breast (principal); R92.323 Mammographic fibroglandular density, bilateral breasts; R92.8 Other abnormal and inconclusive findings on diagnostic imaging of breast